=== PATIENT | female | born 1935 | race Caucasian/White ===

== ENCOUNTER 2018-08-26 15:07 | Observation (INO) | payer MEDICARE, BC ==
[2018-08-26 17:15] LABS: ABS Basophils 0 10^3/ul (0-0.2); ABS Eosinophils 0.2 10^3/ul (0-0.6); ABS Lymphocytes 1.3 10^3/ul (1.0-4.8); ABS Monocytes 0.7 10^3/ul (0-0.8); ABS Neutrophils 9.2 10^3/ul (1.5-7.7); ABS Nucleated RBC 0 10^3/ul; Eosinophil % 1.5 %; Hematocrit 45 % (35-47); Hemoglobin 15.3 g/dl (12.0-16.0); Lymphocyte % 11.7 %; Mean Corpuscular HGB Conc 34 g/dl (31-36); Mean Corpuscular Hemoglobin 30 pg (27-31); Mean Corpuscular Volume 89 fL (80-97); Mean Platelet Volume 7.7 fL (7.4-10.4); Nucleated Red Blood Cells % 0.1; Platelet Count 290 10^3/ul (150-450); Red Blood Count 5.06 10^6/ul (4.00-5.40); Red Cell Distribution Width 14 % (10.5-15); White Blood Count 11.4 10^3/ul (3.5-10.8)
[2018-08-26 17:30] LABS: Albumin 4.3 g/dL (3.2-5.2); Albumin/Globulin Ratio 1.2 (1-3); BUN/Creatinine Ratio 19.6 (8-20); C Reactive Protein 3.12 mg/L (<8.01); Calcium 10.3 mg/dL (8.6-10.3); EGFR African American 125.1 (>60); EGFR Non-African American 103.4 (>60); Globulin 3.5 g/dL (2-4); Potassium 3.8 mmol/L (3.5-5.0); Total Bilirubin 0.9 mg/dL (0.2-1.0); Total Protein 7.8 g/dL (6.4-8.9); Troponin I 0.01 ng/mL (<0.04)
--- NOTE | 2018-08-26 18:05 | ED ---
HPI Chest Pain - HPI Summary HPI Summary: Pt is an 83 y/o female who presents to the ED c/o CP. Shes had a wet cough and clear nasal discharge for the past two months. Pt went to her PCP where she was found to be tachycardic. A few days ago she felt near-syncopal. She states the CP improves when leaning forward, and also c/o SOB with exertion. Her chest pressure has somewhat resolved, is non-radiating, and is currently rated a 2/10 in severity. Pt also notes that her left arm sometimes falls asleep and she has intermittent soreness of her left axilla. Pt denies any fever, chills, weight gain, erythema of eyes, sore throat, orthopnea, abdominal pain, N/V, dysuria, hematuria, myalgia, edema, rash, or dizziness. She is concerned that she might have CHF. Pts mother of [place] at 73 years old. She denies any FHx of blood clots or aneurysm. Pt is accompanied by her neighbor. PMHx HTN and phlebitis. She denies any smoking or alcohol use. Pt took ASA today. - History of Current Complaint Chief Complaint: EDChestPainROMI Hx Obtained From: Patient Onset/Duration: Resolved Timing: Intermittent Current Severity: None Pain Intensity: 0 Pain Scale Used: 0-10 Numeric Chest Pain Radiates: No Character: Pressure/Squeezing Aggravating Factor(s): Nothing Alleviating Factor(s): Other: - leaning forward Associated Signs and Symptoms: Positive: Chest Pain, Shortness of Breath - Allergy/Home Medications Allergies/Adverse Reactions: Allergies Allergy/AdvReac Type Severity Reaction Status Date / Time No Known Allergies Allergy Verified 10/19/15 13:12 Home Medications: Home Medications Hydrochlorothiazide TAB* [Hydrodiuril TAB*] 25 mg PO DAILY 08/26/18 [History Confirmed 08/26/18] Potassium Chloride 10 meq PO BID 08/26/18 [History Confirmed 08/26/18] PMH/Surg Hx/FS Hx/Imm Hx Endocrine/Hematology History: Denies: Hx Diabetes, Hx Thyroid Disease Cardiovascular History: Reports: Hx Hypertension, Other Cardiovascular Problems/ Disorders - phlebitis Respiratory History: Denies: Hx Asthma, Hx Chronic Obstructive Pulmonary Disease (COPD) GI History: Denies: Hx Ulcer Musculoskeletal History: Reports: Hx Arthritis Neurological History: Reports: Other Neuro Impairments/Disorders - guillain- guzman syndrome - Cancer History Hx Chemotherapy: No Hx Radiation Therapy: No - Surgical History Surgery Procedure, Year, and Place: Surgery left eye 5 times last year, once this year. Colon Resection for diverticulitis 2002 Infectious Disease History: No Infectious Disease History: Reports: Hx Hepatitis - mono hepatitis, History Other Infectious Disease - mono hepatitis/guillane barre Denies: Hx Human Immunodeficiency Virus (HIV), Traveled Outside the [place] in Last 30 Days - Family History Known Family History: Positive: Cardiac Disease - [place], Respiratory Disease - COPD , Other - hypothryoidism, schizophrenia, RA Negative: Blood Disorder - clots, aneurysm - Social History Alcohol Use: None Hx Substance Use: No Substance Use Type: Reports: None Hx Tobacco Use: No Smoking Status (MU): Never Smoked Tobacco Review of Systems Negative: Fever, Chills, Other - weight gain Negative: Erythema Positive: Nasal Discharge - clear. Negative: Sore Throat Positive: Chest Pain Positive: Shortness Of Breath, Cough - wet. Negative: Other - orthopnea Negative: Abdominal Pain, Vomiting, Nausea Negative: dysuria, hematuria Positive: Other - left axilla soreness. Negative: Myalgia, Edema Negative: Rash Neurological: Other - NEGATIVE: dizziness Positive: Paresthesia - left arm, intermittent, Syncope - near All Other Systems Reviewed And Are Negative: Yes Physical Exam - Summary Physical Exam Summary: Constitutional: Well-developed, Well-nourished, Alert. (-) Distressed Skin: Warm, Dry HENT: Normocephalic; Atraumatic Eyes: Conjunctiva normal Neck: Musculoskeletal ROM normal neck. (-) JVD, (-) Stridor, (-) Tracheal deviation Cardio: Rhythm regular, rate normal, Heart sounds normal; Intact distal pulses; The pedal pulses are 2+ and symmetric. Radial pulses are 2+ and symmetric. (-) Murmur Pulmonary/Chest wall: Effort normal. (-) Respiratory distress, (-) Wheezes, (-) Rales Abd: Soft, (-) epigastric tenderness, (-) Distension, (-) Guarding, (-) Rebound Musculoskeletal: (-) Edema Lymph: (-) Cervical adenopathy Neuro: Alert, Oriented x3 Psych: Mood and affect Normal Triage Information Reviewed: Yes Vital Signs On Initial Exam: Initial Vitals Temp Pulse Resp BP Pulse Ox 96.9 F 87 18 159/95 96 08/26/18 15:11 08/26/18 15:11 08/26/18 15:11 08/26/18 15:11 08/26/18 15:11 Vital Signs Reviewed: Yes Diagnostics - Vital Signs Vital Signs Temp Pulse Resp BP Pulse Ox 08/26/18 17:57 85 16 08/26/18 17:55 84 19 147/88 97 08/26/18 16:57 96.9 F 83 18 173/104 96 08/26/18 15:11 96.9 F 87 18 159/95 96 - Laboratory Lab Results: Lab Results 08/26/18 08/26/18 08/26/18 Range/Units 16:54 16:54 16:54 WBC 11.4 H (3.5-10.8) 10^3/ul RBC 5.06 (4.00-5.40) 10^6/ul Hgb 15.3 (12.0-16.0) g/dl Hct 45 (35-47) % MCV 89 (80-97) fL MCH 30 (27-31) pg MCHC 34 (31-36) g/dl RDW 14 (10.5-15) % Plt Count 290 (150-450) 10^3/ul MPV 7.7 (7.4-10.4) fL Neut % (Auto) 80.3 % Lymph % (Auto) 11.7 % Estill % (Auto) 6.2 % Eos % (Auto) 1.5 % Baso % (Auto) 0.3 % Absolute Neuts (auto) 9.2 H (1.5-7.7) 10^3/ul Absolute Lymphs (auto) 1.3 (1.0-4.8) 10^3/ul Absolute Monos (auto) 0.7 (0-0.8) 10^3/ul Absolute Eos (auto) 0.2 (0-0.6) 10^3/ul Absolute Basos (auto) 0 (0-0.2) 10^3/ul Absolute Nucleated RBC 0 10^3/ul Nucleated RBC % 0.1 D-Dimer, Quantitative (Less Than 230) ng/mL Sodium 134 L (135-145) mmol/L Potassium 3.8 (3.5-5.0) mmol/L Chloride 96 L (101-111) mmol/L Carbon Dioxide 31 (22-32) mmol/L Anion Gap 7 (2-11) mmol/L BUN 11 (6-24) mg/dL Creatinine 0.56 (0.51-0.95) mg/dL Est GFR ( Amer) 125.1 (>60) Est GFR (Non-Af Amer) 103.4 (>60) BUN/Creatinine Ratio 19.6 (8-20) Glucose 112 H (70-100) mg/dL Lactic Acid 1.9 (0.5-2.0) mmol/L Calcium 10.3 (8.6-10.3) mg/dL Total Bilirubin 0.90 (0.2-1.0) mg/dL AST 15 (13-39) U/L ALT 16 (7-52) U/L Alkaline Phosphatase 67 (34-104) U/L Troponin I 0.01 (<0.04) ng/mL C-Reactive Protein 3.12 (<8.01) mg/L Total Protein 7.8 (6.4-8.9) g/dL Albumin 4.3 (3.2-5.2) g/dL Globulin 3.5 (2-4) g/dL Albumin/Globulin Ratio 1.2 (1-3) 08/26/18 Range/Units 16:55 WBC (3.5-10.8) 10^3/ul RBC (4.00-5.40) 10^6/ul Hgb (12.0-16.0) g/dl Hct (35-47) % MCV (80-97) fL MCH (27-31) pg MCHC (31-36) g/dl RDW (10.5-15) % Plt Count (150-450) 10^3/ul MPV (7.4-10.4) fL Neut % (Auto) % Lymph % (Auto) % Estill % (Auto) % Eos % (Auto) % Baso % (Auto) % Absolute Neuts (auto) (1.5-7.7) 10^3/ul Absolute Lymphs (auto) (1.0-4.8) 10^3/ul Absolute Monos (auto) (0-0.8) 10^3/ul Absolute Eos (auto) (0-0.6) 10^3/ul Absolute Basos (auto) (0-0.2) 10^3/ul Absolute Nucleated RBC 10^3/ul Nucleated RBC % D-Dimer, Quantitative 280 H (Less Than 230) ng/mL Sodium (135-145) mmol/L Potassium (3.5-5.0) mmol/L Chloride (101-111) mmol/L Carbon Dioxide (22-32) mmol/L Anion Gap (2-11) mmol/L BUN (6-24) mg/dL Creatinine (0.51-0.95) mg/dL Est GFR ( Amer) (>60) Est GFR (Non-Af Amer) (>60) BUN/Creatinine Ratio (8-20) Glucose (70-100) mg/dL Lactic Acid (0.5-2.0) mmol/L Calcium (8.6-10.3) mg/dL Total Bilirubin (0.2-1.0) mg/dL AST (13-39) U/L ALT (7-52) U/L Alkaline Phosphatase (34-104) U/L Troponin I (<0.04) ng/mL C-Reactive Protein (<8.01) mg/L Total Protein (6.4-8.9) g/dL Albumin (3.2-5.2) g/dL Globulin (2-4) g/dL Albumin/Globulin Ratio (1-3) Result Diagrams: 08/26/18 16:54 08/26/18 16:54 Lab Statement: Any lab studies that have been ordered have been reviewed, and results considered in the medical decision making process. - Radiology CXR Radiology Interpretation Completed By: ED Physician Summary of Radiographic Findings: Pulmonary edema. Pending official radiology report. - CT Chest/Thorax CTA CT Interpretation Completed By: Radiologist Summary of CT Findings: 1. No evidence of acute pulmonary embolus. Mildly enlarged main pulmonary artery may be secondary to underlying pulmonary arterial hypertension. 2. Bilateral septal thickening and groundglass opacities , likely representing a combination of mild pulmonary edema and atelectasis. 3. Stable cardiomegaly. 4. Mildly dilated ascending aorta, stable. 5. Other non-emergent findings detailed above. ED physician reviewed radiology report. - EKG 15:23 Cardiac Rate: NL - 90 bpm EKG Rhythm: Sinus Rhythm Summary of EKG Findings: No STEMI. Re-Evaluation - Re-Evaluation First Eval Re-Evaluation Time: 21:14 Change: Improved Comment: Pt's CP has resolved with NTG. Chest Pain Course/Dx - Course Course Of Treatment: Pt is an 83 y/o female who presents to the ED c/o CP and SOB. A CXR revealed pulmonary edema. A chest/thorax CTA revealed No evidence of acute pulmonary embolus. Mildly enlarged main pulmonary artery may be secondary to underlying pulmonary arterial hypertension. Bilateral septal thickening and groundglass opacities, likely representing a combination of mild pulmonary edema and atelectasis. Stable cardiomegaly. Mildly dilated ascending aorta, stable. An EKG was normal. She has multiple risk factors for CAD. Likely cardiac rule out stress test in hospital. Pt will be admitted to Dr. Gonzales with final dx of unspecified CP and dyspnea on exertion. She is agreeable with this plan. - Diagnoses Provider Diagnoses: Chest pain, unspecified, Dyspnea on exertion - Provider Notifications Discussed Care Of Patient With: Erin Gonzales Time Discussed With Above Provider: 20:45 Instructed by Provider To: Admit As Inpatient Discharge - Sign-Out/Discharge Documenting (check all that apply): Patient Departure - Admit Patient Received Moderate/Deep Sedation with Procedure: No - Discharge Plan Condition: Stable Disposition: ADMITTED TO [facility] Referrals: Lor Coleman MD [Primary Care Provider] - - Billing Disposition and Condition Condition: STABLE Disposition: Admitted to [facility] - Attestation Statements Document Initiated by Scribe: Yes Documenting Scribe: Consuelo Jenkins Provider For Whom Scribe is Documenting (Include Credential): Janes Rollins MD Scribe Attestation: Consuelo Tamayo, scribed for Janes Rollins MD on 08/26/18 at 2140. Scribe Documentation Reviewed: Yes Provider Attestation: The documentation as recorded by the Consuelo rey accurately reflects the service I personally performed and the decisions made by , Janes Rollins MD Status of Scribe Document: Viewed
[2018-08-26] MEDS ORDERED: Nitroglycerin TAB 0.4 MG* 0.4 MG TAB SL ONE (18:18)
[2018-08-26] MEDS ORDERED: Iohexol 350* (CONTRAST) 500 ML MDV IV ONE (18:34)
[2018-08-26] MEDS ORDERED: Nitro 2% OINT* (Nitroglycerin) 1 INCH/PAK PAK TOPICAL ONE (21:17)
[2018-08-26] MEDS ORDERED: Acetaminophen TAB* 325 MG PO PRN (23:00)
[2018-08-26] MEDS ORDERED: Al Hydrox/Mg Hydrox/Simet LIQ* 30 ML UDC PO PRN (23:00)
[2018-08-26] MEDS ORDERED: Nitroglycerin TAB 0.4 MG* 0.4 MG TAB SL PRN (23:04)
[2018-08-27 00:26] LABS: Magnesium 1.9 mg/dL (1.9-2.7)
[2018-08-27] MEDS: Enoxaparin(*) 40 MG/0.4 ML SYR SUBCUT SCH (01:13)
--- NOTE | 2018-08-27 03:01 | HP ---
HISTORY AND PHYSICAL: DATE OF ADMISSION: 08/26/18 PROVIDER: Wanda Toledo NP PRIMARY CARE PROVIDER: Dr. Coleman. ATTENDING PHYSICIAN: Erin Gonzales DO * (dictated by Wanda Toledo NP) CHIEF COMPLAINT: Chest pressure/shortness of breath. HISTORY OF PRESENT ILLNESS: Ms. 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 The patient reports that she has had a cough that is productive with clear secretions x3 to 4 months. She does report a history of allergies and rhinorrhea. She reports that over the past few months, she has had some increased shortness of breath; she notices increased shortness of breath with walking upstairs. Over the past couple of days, she reports that she has had to sleep on an extra pillow and the shortness of breath wakes her at night. Today, she also reported some chest pressure that has been on and off for the past several days; she reports it as a heaviness in her chest. She states that leaning forward relieves the pressure in her chest and makes her breathing better. The patient denies any other symptoms. Denies any recent illnesses. She does report that chest pressure rated at an 8. She states that it feels like a heaviness, it does not radiate. She also complained of her head pressure. She does report cough. Denies any hemoptysis. She does report increased shortness of breath with exertion. Denies any nausea, vomiting, diarrhea, abdominal pain, hematuria, dysuria, focal weakness, or sensory loss. Denies any visual complaints, dysphagia, arthralgias, myalgias. Denies any rashes or lesions, psychosis or anxiety. Due to the chest pressure and shortness of breath, we were asked to see and evaluate her for admission. While in the emergency room, the patient did receive nitroglycerin paste to her chest, which relieved the heaviness in her chest. She reports that she took a full- strength aspirin today at home. PAST MEDICAL HISTORY: 1. Hypertension. 2. High cholesterol. 3. Diverticulitis. 4. 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 6. 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 PAST SURGICAL HISTORY: 1. Bowel resection in 2002 for diverticulitis. 2. Left eye surgery. 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 MEDICATIONS: Home medications: 1. Hydrochlorothiazide 25 mg p.o. daily. 2. Atorvastatin 20 mg p.o. daily. 3. Potassium chloride 10 mEq p.o. b.i.d. ALLERGIES: No known drug allergies. FAMILY HISTORY: Mother with a history of heart attack. Grandfather with a history of heart attack. No reported history of diabetes. Daughter with a history of thyroid cancer. SOCIAL HISTORY: Never smoked. She reports a rare alcohol intake. Denies any illicit drug use. She is . She lives alone. Surrogate decision maker in the event she is unable to make her own decision is her daughters. She is a full code. REVIEW OF SYSTEMS: A 14-point review of systems was performed. All pertinent positives and negatives were mentioned in the HPI. All other remaining are negative. PHYSICAL EXAMINATION GENERAL: At this time, Ms. Carrillo is an 83-year-old female. She is well nourished, well developed, resting on the stretcher in the emergency room. She is not in any acute respiratory distress. She is alert and oriented x3. VITAL SIGNS: Blood pressure 136/85, heart rate 83, respirations 18, O2 saturation 95% to 96% on room air, temperature 96.9. HEENT: Head is atraumatic, normocephalic. Eyes: EOMs are intact. She does have left eyelid drooping that is chronic. She is blind in the left eye. Mucous membranes are moist. NECK: Supple. LUNGS: Clear to auscultation bilaterally. No wheezes, rales, or rhonchi. CARDIAC: S1, S2. She does have a murmur. No gallops. ABDOMEN: Soft and nontender. Bowel sounds are present x4. MUSCULOSKELETAL: She has no clubbing or cyanosis. She is able to move all 4 extremities with 5/5 strength. NEUROLOGIC: She is awake, alert, and oriented x3. Thought process is intact. Speech is clear. Tongue is midline. Cranial nerves II through XII are grossly intact. PSYCH: She is alert and oriented x3, in no apparent anxiety or depression. SKIN: There are no rashes, lesions, or open sores. She is warm, pink, and dry. DIAGNOSTIC STUDIES AND LABORATORY DATA: WBCs are 11.4, RBCs 5.06, hemoglobin 15.3, hematocrit 45, platelet count 290. D-dimer 280. Sodium 134, potassium 3.8, chloride 96, carbon dioxide 31, anion gap 7, BUN 11, creatinine 0.56, glucose is 112. Lactic acid 1.9, calcium 10.3. ASTs were 15, ALTs were 16, alkaline phosphatase 67. Troponin is 0.01 and 0.03. C-reactive protein was 3.12. BNP was 81. She had a CTA of the chest, radiologist's impression: 1. No evidence of acute pulmonary embolus, mildly enlarged main pulmonary artery may be secondary to underlying pulmonary arterial hypertension. 2. Bilateral septal thickening and ground-glass opacities, likely representing a combination of mild pulmonary edema and atelectasis. 3. Stable cardiomegaly. 4. Mild dilated ascending aorta, stable. 5. There is a partially calcified 8 mm nodule noted in the right lung, likely a partially calcified granuloma. No grossly enlarged lymph nodes in the chest. She had an electrocardiogram, which showed sinus rhythm with a prolonged KS. ASSESSMENT AND PLAN: Ms. Carrillo is an 83-year-old female with a past medical history significant for hypertension, high cholesterol who presented to the emergency room with complaints of chest pain and shortness of breath times several months; chest pain on and off times several days. Due to her chest pain , we were asked to see and evaluate her for admission. 1. Chest pain. We will make her observation to rule out acute coronary syndrome. We will trend her troponins. They are currently negative x2. She will have a third troponin that is currently pending. I will place her tele. She will be monitored on the monitor overnight. We will repeat an EKG in the morning. I will get a transthoracic echocardiogram as the patient does have a heart murmur. I will also get a nuclear stress test due to the chest pressure she has been experiencing. I will continue on aspirin and statin therapy. 2. Shortness of breath. Shortness of breath is unclear at this time. Her CT of the chest showed no pulmonary embolism. It did show mild pulmonary edema versus atelectasis. I suspect that her shortness of breath could be related to allergies as she does report rhinorrhea and cough with clear secretions. Also, she did have a CT of the chest, which was negative for pulmonary embolism. Within the differential, this could also be related to valvular abnormalities. We will get a transthoracic echocardiogram in the morning and again we will monitor on telemetry. I do not feel that this is infectious at this time, as the patient does not have a fever. Her O2 saturation on room air is 96% and her respirations are easy and even. I do not feel that she is in acute pulmonary edema, as the patient has no swelling and is not acutely short of breath. At this time, I am going to hold off on diuretics and antibiotics, as the patient does not appear to be fluid overloaded or infectious at this time. 3. Hypertension. We will continue hydrochlorothiazide as previously prescribed. 4. Hyperlipidemia. We will continue on atorvastatin as previously prescribed. 5. Fluids, electrolytes, nutrition. She can have a heart-healthy, no-caffeine diet. She will be n.p.o. for breakfast for her nuclear stress test. 6. DVT prophylaxis. I will place her on Lovenox subcu. 7. Code status. She is a full code. TIME SPENT: Time spent on this admission was 60 minutes, greater than half that time was spent at the bedside reviewing events leading thus far to her hospitalization, performing physical exam and implementing my plan of care. I have discussed this with my attending, Dr. Erin Gonzales; she is in agreement with my plan. WANDA TOLEDO, SAM [id number]/[facility] #: [id number] STUART
[2018-08-27 06:55] LABS: HDL Cholesterol 47.8 mg/dL
[2018-08-27] MEDS: Potassium Chlor TAB* 10 MEQ TAB.ER PO SCH ×2 (11:28→20:48)
[2018-08-27] MEDS: Aspirin 81 mg CHEW TAB* 81 MG TAB.CHEW PO SCH (11:28)
[2018-08-27] MEDS: Hydrochlorothiazide TAB* 25 MG PO SCH (11:28)
--- NOTE | 2018-08-27 12:14 | ECHO ---
Patient: JYOTHI LOYOLA [facility] Rec#: [id number] : 1935 Date: 08/27/2018 Age: 83y Height: 157 cm / 61.8 in Weight: 67.7 kg / 149.2 lbs Sex: F BSA: 1.68 Room#: [facility] Admit Date#: 08/26/2018 Type: Inpatient Referring: Wanda Toledo Reading: Elder Osei MD [employer] Driver: Sonya Hill BENJY CC: Lor Coleman MD Transthoracic Echocardiogram Indication: CP //Murmur BP: 111/62 HR: 69 Rhythm: NSR Findings History: HTN,HLD,ICE syndrome,CP,murmur. Technical Comments: The study quality is good. Completed at 1130. Left Ventricle: The left ventricular chamber size is decreased. There is normal left ventricular systolic function. The estimated ejection fraction is 50-55%. paradoxical septal wall motion Abnormal left ventricular diastolic function is observed. Left Atrium: The left atrial chamber size is normal. Right Ventricle: The right ventricular cavity size is normal. The right ventricular global systolic function is normal. Right Atrium: The right atrium is not well visualized. Aortic Valve: The aortic valve is trileaflet. There is no evidence of aortic valve thickening. There is mild aortic regurgitation. Trace-mild. There is no evidence of aortic stenosis. Mitral Valve: The mitral valve leaflets are mildly thickened. There is mild mitral regurgitation. There is no evidence of mitral stenosis. Tricuspid Valve: The tricuspid valve leaflets are normal. There is mild tricuspid regurgitation. There is evidence of borderline pulmonary hypertension. There is no tricuspid stenosis. Pulmonic Valve: The pulmonic valve appears normal. There is no evidence of pulmonic regurgitation. There is no pulmonic stenosis. Pericardium: The pericardium appears normal. Aorta: There is no dilatation of the ascending aorta. There is no dilatation of the aortic arch. There is no dilation of the aortic root. Pulmonary Artery: The main pulmonary artery appears normal. Venous: The inferior vena cava is dilated. There is a greater than 50% respiratory change in the inferior vena cava dimension. Summary: There was not any prior study for comparison. Conclusions The left ventricular chamber size is decreased. The estimated ejection fraction is 50-55%. paradoxical septal wall motion . Abnormal left ventricular diastolic function is observed. There is mild aortic regurgitation. Trace-mild. There is mild mitral regurgitation. There is mild tricuspid regurgitation. There is evidence of borderline pulmonary hypertension. Measurements Name Value Normal Range RVIDd (AP) 2D 3.2 cm (0.9 - 2.6) RVDdMajor (2D) 2.5 cm (2.2 - 4.4) IVSd (2D) 0.8 cm (0.6 - 1) LVPWd (2D) 0.9 cm (0.6 - 1) LVIDd (2D) 3.4 cm (3.6 - 5.4) LVIDs (2D) 2.4 cm - LV FS (2D) 29 % (25 - 45) Aortic Annulus 1.9 cm (1.4 - 2.6) Ao root diameter (2D) 2.8 cm (2.1 - 3.5) Ascending Ao 2.4 cm (2.1 - 3.4) Aortic arch 2.7 cm (1.8 - 3.4) Descending Ao 1 cm - LA dimension (AP) 2D 3.3 cm (2.3 - 3.8) LAd ISD 4CH 4.8 cm (2.9 - 5.3) LA ISD 4CH W 3 cm (2.5 - 4.5) Name Value Normal Range LA ESV SP 4CH (A/L) 18 ml - LA ESV SP 2CH (A/L) 41 ml - Name Value Normal Range MV E-wave Vmax 0.6 m/sec - MV deceleration time 193 msec - MV A-wave Vmax 1 m/sec - MV E:A ratio 0.6 ratio - LV septal e' Vmax 0.06 m/sec - LV lateral e' Vmax 0.09 m/sec - Name Value Normal Range AV Vmax 1.6 m/sec - AV VTI 35.4 cm - AV peak gradient 10 mmHg - AV mean gradient 6 mmHg - LVOT Vmax 1.2 m/sec - LVOT VTI 25.8 cm - LVOT peak gradient 6 mmHg - LVOT mean gradient 3 mmHg - AR PHT 543 msec - Name Value Normal Range TR Vmax 2.6 m/sec - TR peak gradient 26 mmHg - RAP 8 mmHg - RVSP 34 mmHg - IVC diameter 2.1 cm - Name Value Normal Range PV Vmax 0.9 m/sec - PV peak gradient 3 mmHg -
[2018-08-27] MEDS ORDERED: Metoprolol Succinate XL TAB* 25 MG PO ONE (15:44)
--- NOTE | 2018-08-27 18:50 | PN ---
Subjective Date of Service: 08/27/18 Interval History: Awake, alert. no acute distress. S/p Nuclear stress test negative, she did have runs of SVT and ST down-sloaping, No chest pain during exercise she did have dyspnea however. Patient remains on tele with sinus rhythm with 1st degree AV block. Echo EF preserved no significant valvular disease Past Medical History: Unchanged from Admission Objective Active Medications: Acetaminophen (Tylenol Tab*) 650 mg PO Q4H PRN PRN Reason: FEVER/PAIN Al Hydrox/Mg Hydrox/Simethicone (Maalox Plus*) 30 ml PO Q6H PRN PRN Reason: INDIGESTION Aspirin (Aspirin 81 Mg Chew Tab*) 81 mg PO DAILY [facility] Last Admin: 08/27/18 11:28 Dose: 81 mg Atorvastatin Calcium (Lipitor*) 25 mg PO 2000 [facility] Enoxaparin Sodium (Lovenox(*)) 40 mg SUBCUT Q24H [facility] Last Admin: 08/27/18 01:13 Dose: 40 mg Hydrochlorothiazide (Hydrodiuril Tab*) 25 mg PO DAILY [facility] Last Admin: 08/27/18 11:28 Dose: 25 mg Metoprolol Succinate (Toprol Xl Tab*) 25 mg PO DAILY [facility] Nitroglycerin (Nitroglycerin Tab 0.4 Mg*) 0.4 mg SL Q5M PRN PRN Reason: ANGINA Potassium Chloride (Klor Con Er Tab*) 10 meq PO BID [facility] Last Admin: 08/27/18 11:28 Dose: 10 meq Vital Signs - 8 hr 08/27/18 08/27/18 11:49 15:15 Temperature 97.8 F 97.5 F Pulse Rate 68 71 Respiratory 16 16 Rate Blood Pressure 127/64 121/66 (mmHg) O2 Sat by Pulse 93 98 Oximetry Oxygen Devices in Use Now: None Appearance: alert, no acute distress Eyes: No Scleral Icterus Ears/Nose/Mouth/Throat: NL Teeth, Lips, Gums, Clear Oropharnyx Neck: NL Appearance and Movements; NL JVP, Trachea Midline Respiratory: Symmetrical Chest Expansion and Respiratory Effort, Clear to Auscultation Cardiovascular: - - systolic murmur Abdominal: NL Sounds; No Tenderness; No Distention Extremities: No Edema Neurological: Alert and Oriented x 3 Result Diagrams: 08/26/18 16:54 08/26/18 16:54 Additional Lab and Data: Lab Results 08/26/18 08/26/18 08/26/18 Range/Units 16:54 16:54 16:54 WBC 11.4 H (3.5-10.8) 10^3/ul RBC 5.06 (4.00-5.40) 10^6/ul Hgb 15.3 (12.0-16.0) g/dl Hct 45 (35-47) % MCV 89 (80-97) fL MCH 30 (27-31) pg MCHC 34 (31-36) g/dl RDW 14 (10.5-15) % Plt Count 290 (150-450) 10^3/ul MPV 7.7 (7.4-10.4) fL Neut % (Auto) 80.3 % Lymph % (Auto) 11.7 % [place] % (Auto) 6.2 % Eos % (Auto) 1.5 % Baso % (Auto) 0.3 % Absolute Neuts (auto) 9.2 H (1.5-7.7) 10^3/ul Absolute Lymphs (auto) 1.3 (1.0-4.8) 10^3/ul Absolute Monos (auto) 0.7 (0-0.8) 10^3/ul Absolute Eos (auto) 0.2 (0-0.6) 10^3/ul Absolute Basos (auto) 0 (0-0.2) 10^3/ul Absolute Nucleated RBC 0 10^3/ul Nucleated RBC % 0.1 D-Dimer, Quantitative (Less Than 230) ng/mL Sodium 134 L (135-145) mmol/L Potassium 3.8 (3.5-5.0) mmol/L Chloride 96 L (101-111) mmol/L Carbon Dioxide 31 (22-32) mmol/L Anion Gap 7 (2-11) mmol/L BUN 11 (6-24) mg/dL Creatinine 0.56 (0.51-0.95) mg/dL Est GFR ( Amer) 125.1 (>60) Est GFR (Non-Af Amer) 103.4 (>60) BUN/Creatinine Ratio 19.6 (8-20) Glucose 112 H (70-100) mg/dL Lactic Acid 1.9 (0.5-2.0) mmol/L Calcium 10.3 (8.6-10.3) mg/dL Total Bilirubin 0.90 (0.2-1.0) mg/dL AST 15 (13-39) U/L ALT 16 (7-52) U/L Alkaline Phosphatase 67 (34-104) U/L Troponin I 0.01 (<0.04) ng/mL C-Reactive Protein 3.12 (<8.01) mg/L Total Protein 7.8 (6.4-8.9) g/dL Albumin 4.3 (3.2-5.2) g/dL Globulin 3.5 (2-4) g/dL Albumin/Globulin Ratio 1.2 (1-3) 08/26/18 Range/Units 16:55 WBC (3.5-10.8) 10^3/ul RBC (4.00-5.40) 10^6/ul Hgb (12.0-16.0) g/dl Hct (35-47) % MCV (80-97) fL MCH (27-31) pg MCHC (31-36) g/dl RDW (10.5-15) % Plt Count (150-450) 10^3/ul MPV (7.4-10.4) fL Neut % (Auto) % Lymph % (Auto) % [place] % (Auto) % Eos % (Auto) % Baso % (Auto) % Absolute Neuts (auto) (1.5-7.7) 10^3/ul Absolute Lymphs (auto) (1.0-4.8) 10^3/ul Absolute Monos (auto) (0-0.8) 10^3/ul Absolute Eos (auto) (0-0.6) 10^3/ul Absolute Basos (auto) (0-0.2) 10^3/ul Absolute Nucleated RBC 10^3/ul Nucleated RBC % D-Dimer, Quantitative 280 H (Less Than 230) ng/mL Sodium (135-145) mmol/L Potassium (3.5-5.0) mmol/L Chloride (101-111) mmol/L Carbon Dioxide (22-32) mmol/L Anion Gap (2-11) mmol/L BUN (6-24) mg/dL Creatinine (0.51-0.95) mg/dL Est GFR ( Amer) (>60) Est GFR (Non-Af Amer) (>60) BUN/Creatinine Ratio (8-20) Glucose (70-100) mg/dL Lactic Acid (0.5-2.0) mmol/L Calcium (8.6-10.3) mg/dL Total Bilirubin (0.2-1.0) mg/dL AST (13-39) U/L ALT (7-52) U/L Alkaline Phosphatase (34-104) U/L Troponin I (<0.04) ng/mL C-Reactive Protein (<8.01) mg/L Total Protein (6.4-8.9) g/dL Albumin (3.2-5.2) g/dL Globulin (2-4) g/dL Albumin/Globulin Ratio (1-3) Assess/Plan/Problems-Billing Assessment: 83 year old female admitted for chest pain and palpitations. found to have negative nuclear stress test and runs of SVT during the exercise portions. - Patient Problems (1) Chest pain Current Visit: Yes Status: Acute Code(s): R07.9 - CHEST PAIN, UNSPECIFIED SNOMED Code(s): 66194102 Comment: - Atypical probably manifested as chest pain and etiology is SVT - Started low dose beta fern with toprol XL 25 mg daily - Will need outpatient cardiology follow up as outpatient (2) SVT (supraventricular tachycardia) Current Visit: Yes Status: Acute Code(s): I47.1 - SUPRAVENTRICULAR TACHYCARDIA SNOMED Code(s): 9777318 Comment: - Atypical probably manifested as chest pain and etiology is SVT - Started low dose beta fern with toprol XL 25 mg daily - Will need outpatient cardiology follow up as outpatient (3) Hypertension Current Visit: Yes Status: Acute Code(s): I10 - ESSENTIAL (PRIMARY) HYPERTENSION SNOMED Code(s): 78640630 Comment: - on Hydrochlorothiazide 25 mg daily, now that I am adding toprol XL 25 mg will need to observe her tonight to make sure BP stable and her rate does not go into bradycardia as she does have first degree AV block - keep on tele. start toprol tongiht, reassess tele in am and BP. We may need to cut back on HCTZ as I am starting Toprol new med for her (4) Hyperlipidemia Current Visit: Yes Status: Acute Code(s): E78.5 - HYPERLIPIDEMIA, UNSPECIFIED SNOMED Code(s): 04527236 Comment: - Continue atorvastatin (5) DVT prophylaxis Current Visit: Yes Status: Acute Code(s): FUM6706 - SNOMED Code(s): 568163832 Comment: - Lovenox 40 mg SQ daily
[2018-08-27] MEDS ORDERED: Atorvastatin* 10 MG TAB PO SCH (20:00)
[2018-08-28] MEDS: Enoxaparin(*) 40 MG/0.4 ML SYR SUBCUT SCH (00:11)
[2018-08-28] MEDS ORDERED: Metoprolol Succinate XL TAB* 25 MG PO SCH ×2 (09:00→10:00)
[2018-08-28] MEDS: Aspirin 81 mg CHEW TAB* 81 MG TAB.CHEW PO SCH (09:25)
[2018-08-28] MEDS: Potassium Chlor TAB* 10 MEQ TAB.ER PO SCH (09:25)
[2018-08-28] MEDS: Hydrochlorothiazide TAB* 25 MG PO SCH (09:25)
[2018-08-28 12:08] VITALS: BP 127/64
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
== END 2018-08-28 13:21 | disposition home or self-care (01) ==
LOC: ED 15:07 → MEDTELE 23:00
PROVIDERS: ADMIT Internal Medicine; ATTEND Internal Medicine
DX: R07.9 Chest pain, unspecified (principal); I47.1 Supraventricular tachycardia; I10 Essential (primary) hypertension; E78.5 Hyperlipidemia, unspecified; R06.02 Shortness of breath; R06.00 Dyspnea, unspecified; Z79.82 Long term (current) use of aspirin; E78.00 Pure hypercholesterolemia, unspecified; H54.62 Unqualified visual loss, left eye, normal vision right eye; Z86.19 Personal history of other infectious and parasitic diseases
CPT/HCPCS: 36415; 71045; 71275; 78452; 80053; 80061; 83605; 83735; 83880; 84484; 85025; 85379; 86140; 93005; 93017; 93306; 96372; 99284; A9270-GY; A9502; G0378; J1650; Q9967

== ENCOUNTER 2023-09-08 08:18 | Observation (INO) ==
[~2023-09-08 08:18] MED LIST: Naloxone 0.4 mg VIAL 0.4 mg/ml 1 ml VIAL IV PRN
[2023-09-08] MEDS ORDERED: Propofol 10 MG/ML 20 ML BTL ONE (09:07)
[2023-09-08] MEDS ORDERED: Midazolam 2 mg/2 ml VIAL 1 mg/ml 2 ml VIAL (2 mg) ONE (09:07)
[2023-09-08] MEDS ORDERED: fentaNYL 100 mcg/2 ml 50 MCG/ML VIAL ONE ×2 (09:07→14:44)
[2023-09-08 09:32] LABS: Rapid COVID-19 Molecular Undetected (Undetected)
[2023-09-08] MEDS ORDERED: ceFAZolin 2 GM PREMIX 2 GM/50 ML BAG ONE (09:45)
[2023-09-08] MEDS ORDERED: Tranexamic Acid 1 GM/100ML BAG 2,000 MG/200 ML BAG IV ONE (09:45)
[2023-09-08] MEDS ORDERED: ROPIVACAINE 5 MG/ML 30 ML BTL (0.5%) ONE ×3 (09:58→12:14)
[2023-09-08] MEDS ORDERED: KETAMINE HCL 10 MG/ML 20 ml VIAL (200 MG) ONE (12:01)
[2023-09-08] MEDS ORDERED: Morphine 2 MG/ML SYRINGE IV PRN (12:06)
[2023-09-08] MEDS ORDERED: Ondansetron 4 mg VIAL 2 MG/ML 2 ml VIAL IV PRN (12:06)
[2023-09-08] MEDS ORDERED: Magnesium Hydroxide LIQ 30 ML UDC PO PRN (12:06)
[2023-09-08] MEDS ORDERED: Lactulose 30 ml UDC PO PRN (12:06)
[2023-09-08] MEDS: fentaNYL 100 mcg/2 ml 50 MCG/ML VIAL IV PRN (14:44)
[2023-09-08] MEDS: Lactated Ringers 1000 ml BAG 1,000 ML IV SCH ×2 (15:36→15:43)
[2023-09-08] MEDS: hydrALAZINE 20 mg/ml 1 ML Vial IV IV SLOW PU ONE (15:44)
[2023-09-08] MEDS: Buffered Lidocaine 1% SYRIN 1 ml INTRADERM ONE (16:19)
[2023-09-08] MEDS: ceFAZolin 1 GM ADVAN 1 GM in NS 0.9% 50 ML 50 ML IVPB SCH (20:07)
[2023-09-08] MEDS: Magnesium Hydroxide LIQ 30 ML UDC PO SCH (20:14)
[2023-09-08] MEDS: DORZOLAMIDE TIMOLOL LEFT EYE SCH (20:15)
[2023-09-08] MEDS: LATANOPROST 0.005% LEFT EYE SCH (20:24)
[2023-09-09] MEDS: Ondansetron ODT 4 mg TAB 4 MG TAB PO PRN (02:29)
[2023-09-09 05:21] LABS: Hematocrit 41.1 % (35-45); Mean Platelet Volume 7.5 fL (7.5-11.2); Platelet Count 227 10^3/uL (150-450)
[2023-09-09 05:41] LABS: Creatinine, Serum 0.54 mg/dL (0.51-0.95); Potassium 3.5 mmol/L (3.5-5.0); eGFR CKD-EPI 88.5 (>60)
[2023-09-09] MEDS: Cholecalciferol (VIT D3) 1,000 unit TAB PO SCH (09:17)
[2023-09-09] MEDS: Vitamin THERAPEUTIC TAB PO SCH (09:17)
[2023-09-09] MEDS: Potassium Chlor 20 meq TAB.ER PO SCH (11:38)
[2023-09-10 09:17] LABS: Hematocrit 39.6 % (35-45); Hemoglobin 13.2 g/dL (11.5-14.3); Mean Platelet Volume 7.7 fL (7.5-11.2); Platelet Count 241 10^3/uL (150-450)
[2023-09-10 09:49] LABS: Calcium 9.1 mg/dL (8.6-10.3); Creatinine, Serum 0.62 mg/dL (0.51-0.95); Potassium 3.6 mmol/L (3.5-5.0); eGFR CKD-EPI 85.6 (>60)
[2023-09-10 10:05] VITALS: BP 113/75
== END 2023-09-10 10:50 | disposition home or self-care (01) ==
LOC: SSU 08:18 → OR 08:18 → UNDODISOB 09-09 14:13
PROVIDERS: ADMIT Orthopaedic Surgery Adult Reconstructive Orthopaedic Surgery; ATTEND Orthopaedic Surgery Adult Reconstructive Orthopaedic Surgery